=== PATIENT | male | born 1935 | race Caucasian/White ===

== ENCOUNTER 2016-11-15 04:53 | Inpatient (IN) ==
[2016-11-09 10:55] LABS: URINE MICRO REVIEW NEEDED? NO; URINE SOURCE CLEAN CATCH
[2016-11-09 11:08] LABS: BILIRUBIN URINE NEGATIVE (NEGATIVE); BLOOD URINE NEGATIVE (NEGATIVE); COLOR YELLOW; GLUCOSE URINE NEGATIVE (NEGATIVE); LEUKOCYTES URINE TRACE (NEGATIVE); NITRITE URINE NEGATIVE (NEGATIVE); PROTEIN URINE TRACE mg/dL (NEGATIVE); SP GRAVITY URINE 1.005; TURBIDITY URINE CLEAR (CLEAR); UROBILINOGEN URINE NORMAL (NORMAL)
[2016-11-09 11:09] LABS: BASO% 1.1 % (0.0-0.8); EOS# 0.77 X1000 (0.0-0.7); HEMATOCRIT 56.3 % (42.0-52.0); HEMOGLOBIN 18.2 g/dL (14.0-18.0); IMM GRAN# 0.59 X1000 (0.0-0.04); IMM GRAN% 5.4 % (0.0-0.5); LYMPH# 2.41 X1000 (1.2-3.4); MANUAL DIFF NEEDED? YES; MCH 25.7 PG (27-31); MCHC 32.3 g/dL (33-37); MCV 79.6 FL (81-99); MONO# 1.28 X1000 (0.11-0.59); MONO% 11.7 % (1.7-9.3); MPV 11.2 FL (7.4-10.4); NEUT% 52.8 % (42.2-75.2); PLT 344 X1000 (130-400); RBC 7.07 XMIL (4.7-6.1)
[2016-11-09 11:10] LABS: UR EPITHELIAL CELLS <10 /HPF (<10); URINE BACTERIA NEGATIVE /HPF; URINE RBC <10 /HPF (<10); URINE WBC <10 /HPF (<10)
[2016-11-09 11:37] LABS: CALCIUM 9.3 mg/dL (8.8-10.2); POTASSIUM 4.9 mmol/L (3.5-5.1)
[2016-11-09 11:43] LABS: LYMPHS 40 % (21-51); MONO 4 % (1-9)
--- NOTE | 2016-11-09 12:08 | EKG Report ---
Test Performed on : 11/09/2016 10:39:25 AM Test Reason : PAT Blood Pressure : / mmHG Vent. Rate : 055 BPM Atrial Rate : 055 BPM P-R Int : 202 ms QRS Dur : 084 ms QT Int : 414 ms P-R-T Axes : 011 -04 043 degrees QTc Int : 396 ms Sinus bradycardia. Cannot rule out Inferior infarct , age undetermined Abnormal ECG No previous ECGs available Confirmed by Manuel Pennington DO ([id number]) on 11/09/2016 6:03:47 PM
[2016-11-09 12:19] LABS: INR 1.33; PROTIME 14.2 Seconds (9.2-11.7)
[2016-11-15] MEDS ORDERED: REGLAN ONE (08:56)
[2016-11-15] MEDS ORDERED: COLACE ONE (08:56)
[2016-11-15] MEDS ORDERED: PEPCID ONE (08:56)
[2016-11-15] MEDS ORDERED: CELEBREX ONE (08:57)
[2016-11-15] MEDS ORDERED: LR 1,000 ML ONE (08:57)
[2016-11-15] MEDS ORDERED: LYRICA ONE ×2 (08:57→08:58)
[2016-11-15] MEDS ORDERED: KEFZOL 2 GM/D5W 2 GM/50 ML IVPB ONE (08:57)
[2016-11-15] MEDS ORDERED: PATIENT'S OWN MED PO SCH (09:00)
[2016-11-15] MEDS ORDERED: QUELICIN (DOSE) ONE (09:49)
[2016-11-15] MEDS ORDERED: XYLOCAINE-MPF 2% ONE (09:49)
[2016-11-15] MEDS ORDERED: DIPRIVAN 1% ONE ×2 (09:54→12:11)
[2016-11-15] MEDS ORDERED: MARCAINE 0.25% PF ONE (10:23)
[2016-11-15] MEDS ORDERED: DURAMORPH ONE (10:23)
[2016-11-15] MEDS ORDERED: VANCOMYCIN ONE (10:24)
[2016-11-15] MEDS ORDERED: SODIUM CHLORIDE 0.9% ONE (10:24)
[2016-11-15] MEDS ORDERED: CYKLOKAPRON 1,000 MG/NS 1,000 MG/100 ML IVPB ONE (10:24)
[2016-11-15] MEDS ORDERED: TORADOL ONE (10:24)
[2016-11-15] MEDS ORDERED: EXPAREL 1.3% ONE (10:25)
[2016-11-15] MEDS ORDERED: NEOSPORIN G.U. IRRIGANT ONE (10:25)
[2016-11-15] MEDS ORDERED: FENTANYL ONE (11:10)
[2016-11-15] MEDS ORDERED: EPHEDRINE ONE (11:23)
[2016-11-15] MEDS ORDERED: ZOFRAN ONE (11:52)
[2016-11-15] MEDS ORDERED: DECADRON ONE (11:52)
[2016-11-15] MEDS ORDERED: OFIRMEV 1000 MG/ISOTONIC SOLN 1,000 MG/100 ML BOTTLE ONE (11:52)
[2016-11-15] MEDS ORDERED: STERILE WATER INJ. ONE (13:31)
[2016-11-15 14:03] LABS: URINE MICRO REVIEW NEEDED? NO; URINE SOURCE CATH
[2016-11-15 14:06] LABS: BILIRUBIN URINE NEGATIVE (NEGATIVE); BLOOD URINE NEGATIVE (NEGATIVE); COLOR YELLOW; GLUCOSE URINE NEGATIVE (NEGATIVE); LEUKOCYTES URINE NEGATIVE (NEGATIVE); NITRITE URINE NEGATIVE (NEGATIVE); PH URINE 6.5; PROTEIN URINE NEGATIVE (NEGATIVE); SP GRAVITY URINE 1.014; TURBIDITY URINE CLEAR (CLEAR); UR EPITHELIAL CELLS <10 /HPF (<10); URINE BACTERIA NEGATIVE /HPF; URINE RBC <10 /HPF (<10); URINE WBC <10 /HPF (<10); UROBILINOGEN URINE NORMAL (NORMAL)
--- NOTE | 2016-11-15 14:14 | Diag Imaging Result Doc PS360 ---
EXAM: KNEE 1-2 VIEWS-LEFT HISTORY: tka TECHNIQUE: Left knee AP and lateral COMMENT: There is a total knee arthroplasty. There appears to be appropriate alignment. There is no evidence of acute bony disease otherwise. IMPRESSION: Postsurgical changes. Electronically signed by Bryce Vincent 11/15/2016 2:12 PM
[2016-11-15] MEDS ORDERED: NS 1,000 ML ONE (14:23)
[2016-11-15] MEDS ORDERED: MORPHINE IV PRN (14:32)
[2016-11-15] MEDS ORDERED: AMBIEN PO PRN (14:32)
[2016-11-15] MEDS ORDERED: ZOFRAN IV PRN (14:32)
[2016-11-15] MEDS ORDERED: MILK OF MAGNESIA PO PRN (14:32)
--- NOTE | 2016-11-15 14:58 | OPERATIVE NOTE ---
PROCEDURE DATE: 11/15/2016 PREOPERATIVE DIAGNOSIS: Degenerative joint disease, left knee. POSTOPERATIVE DIAGNOSIS: Degenerative joint disease, left knee. PROCEDURE PERFORMED: Left total knee replacement. SURGEON: Lori Hollis MD. PHYSICAL THERAPIST TECHNICIAN: Zahida Coombs. ANESTHESIA: Spinal. COMPLICATION: None. PROCEDURE IN DETAIL: An 81-year-old male presents for left knee replacement. Risks, benefits, and no guarantees were discussed, and the patient is willing to proceed. He was taken to the operating room and satisfactory anesthesia obtained. The left knee was prepped and draped in the usual sterile fashion. A time-out was taken to confirm operative site, procedure, and patient. The leg was then wrapped with an Esmarch. Tourniquet inflated to 350 mmHg. A midline incision was made over the front of the knee followed by a quad tendon sparing arthrotomy. The patella was everted and resurfaced with freehand technique. With the patella subluxed laterally the knee was flexed. An intramedullary hole made in the distal femur and the distal femoral cutting block secured in 5 degrees of valgus. Distal femoral resection was then made and the femur sized to a DePuy Attune size 6 femoral component. The 4 in 1 block was secured and the anterior, posterior, and chamfer cuts sequentially made. Any osteophytes were debrided about the femur. The notch was created for posterior stabilized design using the provided notch guide. After preparation of the femur the knee was flexed. A PCL retractor placed behind the tibia to protect the neurovascular bundle. The tibial cutting block was secured with extramedullary alignment and tibial resection made. Flexion and extension gaps were roughly equal after debriding any osteophytes about the tibia. The tibia was sized to a size 7 tibial tray. Trial reduction was performed with a 10 mm thick poly with good range of motion and stability. The patella was sized to a size 38 medialized dome patella. After preparation of all implants the bony surfaces were thoroughly irrigated with pulsatile lavage. Cement with a gram of vancomycin was then utilized to cement a DePuy Attune size 7 tibial base plate, a size 6 left posterior stabilized femoral component, and a 38 medialized dome patella. Excess cement was removed with a Lawrence elevator. While the cement cured the joint capsule was injected with Exparel and a Hemovac drain placed. Afterwards, a 10 mm rotating platform size 6 poly was secured in the tibial tray and the knee reduced. Final range of motion was assessed with midline patellar tracking and 0-120 degrees of motion with good soft tissue balance. The arthrotomy was then closed over the drain after irrigating it with irrigant with #1 Vicryl in the arthrotomy, 2-0 Vicryl in the subcutaneous, and skin cora on the skin edges. Sterile dressings were applied. Tourniquet released with good return of capillary blood flow. No intraoperative complications were noted. Instrument count and sponge count was correct at the time of closure. cc: Yariel Hollis MD
--- NOTE | 2016-11-15 16:31 | PROGRESS NOTE ---
DATE: 11/15/2016 SUBJECTIVE: Mr. Landry is seen for postop, status post total knee replacement. OBJECTIVE: Vital signs: He is afebrile with stable vital signs. extremities: Bandage is clean and dry. He has motor and sensory intact. There is good range of motion of the foot. PLAN: I will plan on mobilization tomorrow. He is stable the present time. cc: Yariel Hollis MD
[2016-11-15] MEDS: ULTRAM PO SCH ×2 (16:49→20:23)
[2016-11-15] MEDS: NS 1,000 ML IV SCH (16:51)
[2016-11-15] MEDS ORDERED: TYLENOL PO SCH (18:00)
[2016-11-15] MEDS: OXY IR PO PRN ×2 (18:19→23:45)
[2016-11-15] MEDS: KEFZOL 1 GM/D5W 1 GM/50 ML IVPB IV SCH (18:20)
--- NOTE | 2016-11-15 19:57 | OPERATIVE NOTE ---
PROCEDURE DATE: 11/15/2016 ATTENDING AND REFERRING PHYSICIAN: Dr. Hollis. HISTORY OF PRESENT ILLNESS: I was called to see this patient because a Torres catheter could not be placed preoperatively. He was under going knee replacement surgery. The patient's chart was reviewed and no problems were noted. He is apparently not taking any medication for obstructive voiding. Physical exam while he was under spinal anesthesia and heavily sedated revealed a severely phimotic foreskin. Both testes were down. DESCRIPTION OF PROCEDURE: The patient was prepped and draped sterilely for penile surgery. The phimotic foreskin was split by using hemostat clamps to dilate the phimotic skin at the 12 and 6 o'clock positions. The phimotic area was still very thick but a coude catheter was able to be placed sterilely through the phimotic foreskin and manipulated through the meatus into the urethra and up through the prostate. After urine returned, 10 mL of sterile water were placed in the Torres's balloon. The Torres was placed to gravity drain. The urine will be sent for urinalysis. He was turned back over to anesthesia in good condition. Recommend keeping his Torres catheter for at least 48 hours to allow the swelling of his foreskin to resolve. Will discuss with the patient circumcision at a later date. Thank you for this consultation. cc: MD Yariel Pond MD
[2016-11-15] MEDS: PERIDEX MT SCH (20:23)
[2016-11-15] MEDS: LYRICA PO SCH (20:24)
[2016-11-15] MEDS: COLACE PO SCH (20:24)
[2016-11-15] MEDS ORDERED: PRINIVIL PO SCH (21:00)
[2016-11-16] MEDS: ULTRAM PO SCH ×2 (03:20→08:46)
[2016-11-16] MEDS: KEFZOL 1 GM/D5W 1 GM/50 ML IVPB IV SCH (03:20)
[2016-11-16] MEDS: NS 1,000 ML IV SCH (03:21)
[2016-11-16 05:27] LABS: HEMATOCRIT 49.5 % (42.0-52.0); HEMOGLOBIN 15.8 g/dL (14.0-18.0)
[2016-11-16 05:42] LABS: CALCIUM 7.8 mg/dL (8.8-10.2); POTASSIUM 5.4 mmol/L (3.5-5.1)
[2016-11-16] MEDS ORDERED: XARELTO PO SCH (06:00)
[2016-11-16] MEDS: LYRICA PO SCH (08:46)
[2016-11-16] MEDS: COLACE PO SCH (08:48)
[2016-11-16] MEDS: PERIDEX MT SCH (08:49)
[2016-11-16] MEDS: OXY IR PO PRN ×2 (08:52→14:36)
[2016-11-16] MEDS ORDERED: CELEBREX PO SCH (09:00)
[2016-11-16] MEDS ORDERED: PEPCID PO SCH (09:00)
[2016-11-16 12:40] VITALS: BP 123/60
--- NOTE | 2016-11-17 05:38 | DISCHARGE SUMMARY ---
ADMISSION DATE: 11/15/2016 DISCHARGE DATE: 11/16/2016 DATE OF ADMISSION: 11/15/2016. DATE OF DISCHARGE: 11/16/2016. DISCHARGE DIAGNOSIS: 1.Status post a left total knee replacement. 2. Urinary retention PROCEDURES: On 11/15/2016 Dr. Hollis performed a left total knee arthroplasty. HOSPITAL COURSE: Mr. Landry was admitted on 11/15/2016 for a total knee arthroplasty. He tolerated the procedure well and postoperatively, he was transferred to the recovery room. Once he was sufficiently recovered he was transferred to [address] [place] [address]. Since then, he has started to mobilize. Today he will work with physical therapy. He will continue to increase his mobilization. He is full weightbearing. He is able to move the leg well. He can wiggle the toes. He can bend and extend the knee. He has no numbness or tingling. He has good sensation. He has good capillary refill and 2+ pedal pulse. I believe at this time, he is ready for discharge. We will remove the knee drain. However we will retain the Torres per Urology. DISCHARGE MEDICATIONS: We will continue his home medications as well as: 1. Normal 10 mg 1-2 p.o. every 4-6 hours p.r.n. pain. 2. Xarelto 10 mg 1 p.o. every day for 2 weeks. DISCHARGE DISPOSITION: Mr. Landry will be discharged home with home health. He will do home physical therapy for 2 weeks. He will follow up with Dr. Hollis in the clinic in 10-14 days. He really needs to work on extension during that time. We will continue him on Normal for pain, as well as Xarelto for DVT prophylaxis. We did review signs and symptoms of infection and complications. Should he have any issues, questions or concerns, he should call the office immediately. 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 Dictated by KEON Mayfield for Yariel Hollis MD cc: KEON Mayfield MD [facility]
== END 2016-11-16 14:49 | disposition home health service (06) ==
LOC: SURHOLD 04:53 → 4N 11:26
PROVIDERS: ADMIT Orthopaedic Surgery Adult Reconstructive Orthopaedic Surgery; ATTEND Orthopaedic Surgery Adult Reconstructive Orthopaedic Surgery

== ENCOUNTER 2016-11-22 14:58 | Inpatient (IN) ==
[2016-11-22 16:40] LABS: BASO% 2.2 % (0.0-0.8); EOS# 0.04 X1000 (0.0-0.7); EOS% 0.5 % (0.0-10.0); HEMATOCRIT 40.3 % (42.0-52.0); HEMOGLOBIN 13.2 g/dL (14.0-18.0); IMM GRAN# 1.33 X1000 (0.0-0.04); IMM GRAN% 15.7 % (0.0-0.5); LYMPH# 0.57 X1000 (1.2-3.4); LYMPH% 6.7 % (20.5-51.1); MANUAL DIFF NEEDED? NO; MCH 26.5 PG (27-31); MCHC 32.8 g/dL (33-37); MCV 80.9 FL (81-99); MONO% 10.6 % (1.7-9.3); MPV 10.9 FL (7.4-10.4); NEUT% 64.3 % (42.2-75.2); PLT 246 X1000 (130-400); RBC 4.98 XMIL (4.7-6.1)
[2016-11-22 16:49] LABS: INR 1.13; PTT 30.7 Seconds (22.0-36.0)
[2016-11-22] MEDS ORDERED: NS 1,000 ML ONE (17:02)
[2016-11-22 17:08] LABS: ALBUMIN 2.8 g/dL (3.5-5.0); CALCIUM 8.3 mg/dL (8.8-10.2); POTASSIUM 5.1 mmol/L (3.5-5.1); TOTAL BILIRUBIN 1.55 mg/dL (0.20-1.00); TOTAL PROTEIN 5.7 g/dL (6.3-8.3)
[2016-11-22] MEDS ORDERED: NS 1,000 ML IV ONE ×4 (17:13→23:40)
[2016-11-22] MEDS ORDERED: LEVAQUIN 500 MG/D5W 500 MG/100 ML IVPB IV ONE (18:58)
[2016-11-22 19:46] LABS: URINE MICRO REVIEW NEEDED? NO; URINE SOURCE CLEAN CATCH
[2016-11-22 19:58] LABS: BILIRUBIN URINE NEGATIVE (NEGATIVE); BLOOD URINE MODERATE (NEGATIVE); COLOR YELLOW; GLUCOSE URINE NEGATIVE (NEGATIVE); LEUKOCYTES URINE LARGE (NEGATIVE); NITRITE URINE NEGATIVE (NEGATIVE); PROTEIN URINE 70 mg/dL (NEGATIVE); SP GRAVITY URINE 1.012; TURBIDITY URINE HAZY (CLEAR); UROBILINOGEN URINE NORMAL (NORMAL)
[2016-11-22 20:00] LABS: UR EPITHELIAL CELLS <10 /HPF (<10); URINE BACTERIA 4+ /HPF; URINE CULTURE NEEDED? YES; URINE RBC 20-40 /HPF (<10); URINE WBC TNTC /HPF (<10)
[2016-11-22] MEDS ORDERED: LASIX IV ONE (23:40)
[2016-11-23] MEDS ORDERED: ROCEPHIN 1 GM in NS 50 ML IV SCH (01:39)
[2016-11-23] MEDS ORDERED: TYLENOL PO PRN (01:39)
[2016-11-23] MEDS ORDERED: ZOFRAN IV PRN (01:39)
[2016-11-23] MEDS: NS 1,000 ML IV SCH ×4 (02:11→23:34)
[2016-11-23] MEDS: LOVENOX SUBQ SCH (02:11)
[2016-11-23 06:58] LABS: BASO% 1.1 % (0.0-0.8); EOS# 0.02 X1000 (0.0-0.7); EOS% 0.2 % (0.0-10.0); HEMATOCRIT 36.1 % (42.0-52.0); HEMOGLOBIN 11.7 g/dL (14.0-18.0); IMM GRAN# 1.11 X1000 (0.0-0.04); IMM GRAN% 13.7 % (0.0-0.5); LYMPH# 0.65 X1000 (1.2-3.4); MANUAL DIFF NEEDED? YES; MCH 26.4 PG (27-31); MCHC 32.4 g/dL (33-37); MCV 81.3 FL (81-99); MONO# 1.12 X1000 (0.11-0.59); MONO% 13.8 % (1.7-9.3); NEUT% 63.2 % (42.2-75.2); PLT 204 X1000 (130-400); RBC 4.44 XMIL (4.7-6.1)
[2016-11-23 07:05] LABS: CALCIUM 7.3 mg/dL (8.8-10.2); POTASSIUM 4.7 mmol/L (3.5-5.1)
[2016-11-23] MEDS: PRILOSEC PO SCH (07:33)
[2016-11-23 07:59] LABS: BANDS 24 % (0-1); HYPOCHROM 1+; LYMPHS 6 % (21-51); MONO 4 % (1-9); NRBC 1 % (0-0)
[2016-11-23] MEDS: OCUVITE LUTEIN & ZEAXANTHIN PO SCH (09:10)
[2016-11-23] MEDS: MERREM 500 MG in NS 50 ML IV SCH ×2 (11:15→17:41)
[2016-11-23] MEDS: NORCO-10 PO PRN ×2 (14:42→21:10)
[2016-11-23] MEDS: FLOMAX PO SCH (21:34)
[2016-11-24] MEDS: NS 1,000 ML IV SCH ×2 (04:23→09:56)
[2016-11-24] MEDS: MERREM 500 MG in NS 50 ML IV SCH ×3 (05:24→20:39)
[2016-11-24] MEDS: LOVENOX SUBQ SCH (06:58)
[2016-11-24] MEDS: PRILOSEC PO SCH (06:58)
[2016-11-24] MEDS: OCUVITE LUTEIN & ZEAXANTHIN PO SCH (09:53)
[2016-11-24 12:25] LABS: INR 1.13
[2016-11-24 12:49] LABS: CALCIUM 8.2 mg/dL (8.8-10.2); POTASSIUM 4.6 mmol/L (3.5-5.1)
[2016-11-24] MEDS ORDERED: NS 0 ML ONE (13:02)
[2016-11-24] MEDS: NORCO-10 PO PRN ×2 (14:14→19:01)
[2016-11-24] MEDS: FLOMAX PO SCH (20:40)
[2016-11-25] MEDS: NS 1,000 ML IV SCH ×3 (04:59→11:37)
[2016-11-25] MEDS: NORCO-10 PO PRN ×2 (04:59→11:24)
[2016-11-25] MEDS: MERREM 500 MG in NS 50 ML IV SCH ×2 (04:59→13:23)
[2016-11-25 06:39] LABS: BASO% 1.3 % (0.0-0.8); EOS# 0.25 X1000 (0.0-0.7); EOS% 2.5 % (0.0-10.0); HEMATOCRIT 36.8 % (42.0-52.0); HEMOGLOBIN 11.9 g/dL (14.0-18.0); IMM GRAN# 1.22 X1000 (0.0-0.04); IMM GRAN% 12.4 % (0.0-0.5); LYMPH# 0.81 X1000 (1.2-3.4); LYMPH% 8.3 % (20.5-51.1); MANUAL DIFF NEEDED? YES; MCH 26.3 PG (27-31); MCHC 32.3 g/dL (33-37); MCV 81.4 FL (81-99); MONO# 1.77 X1000 (0.11-0.59); MPV 10.9 FL (7.4-10.4); NEUT% 57.5 % (42.2-75.2); PLT 191 X1000 (130-400); RBC 4.52 XMIL (4.7-6.1)
[2016-11-25 06:52] LABS: POTASSIUM 4.6 mmol/L (3.5-5.1)
[2016-11-25] MEDS: PRILOSEC PO SCH (07:00)
[2016-11-25] MEDS: LOVENOX SUBQ SCH (07:00)
[2016-11-25 07:29] LABS: BANDS 4 % (0-1); LYMPHS 4 % (21-51); MONO 10 % (1-9)
[2016-11-25 07:52] VITALS: BP 115/55
[2016-11-25] MEDS: OCUVITE LUTEIN & ZEAXANTHIN PO SCH (08:18)
== END 2016-11-25 14:47 | disposition home health service (06) ==
LOC: ED 14:58 → SUATTDRO 11-23 01:03 → 3N 11-23 01:03
PROVIDERS: ATTEND Internal Medicine